=== PATIENT | female | born 1970 | race Caucasian/White ===

== ENCOUNTER → 2017-12-19 | Outpatient (CLI) | payer OTHER ==
[~2017-12-19] MED LIST: ALBUTEROL0.09 MG/A2 INH; CEFDINIR300 MG PO; HUMALOG100 U/ML SC; LANTUS100 U/ML SC; LEVAQUIN750 MG PO; LEVOFLOXACIN500 MG PO; LORAZEPAM0.5 MG PO; PHENERGAN25 M1 PO; PREDNICOT20 MG PO; PREDNISONE50 MG PO; PYRIDIUM200 MG PO; ZESTRIL,PRINIVI20 MG PO; ZITHROMAX Z PA250 MG PO
== END | disposition home or self-care (01) ==
LOC: CARD 10:00
DX: R00.2 Palpitations (principal)

== ENCOUNTER → 2017-12-25 | Outpatient (CLI) | payer OTHER | END | disposition home or self-care (01) | LOC: MAMMO 00:40 | DX: R92.8 Other abnormal and inconclusive findings on diagnostic imaging of breast (principal); N60.02 Solitary cyst of left breast; Z87.898 Personal history of other specified conditions ==

== ENCOUNTER → 2018-01-15 | Outpatient (CLI) | payer OTHER ==
--- NOTE | ~2018-01-15 | PF ---
[place], [place] PULMONARY FUNCTION TEST NAME: ALICE KEYES UNIT #: [id number] ROOM: DOCTOR: GABRIELA SWANN MD,OSIEL BIRTHDATE: [birth year] DOS: 01/15/2018 The testing was done on 01/15/2018 which was ordered by Ted John, nurse practitioner. HISTORY: The patient recorded a 47-year-old female, height of 65 inches, weight of 207 pounds, BMI of 34.5. Testing was done for assessment of bronchial asthma. Symptoms of shortness of breath with exertion, nonproductive cough and chronic wheezing reported. The patient was noted tobacco use as half a pack of cigarettes per day for the past 20 years. SPIROMETRY: The FVC was recorded 2.44 liters, 66% predicted value with 13% improvement postbronchodilator. The FEV1 recorded 1.87 liters as 63% predicted value with 16% improvement postbronchodilator was noted as well. The ratio of FEV1/FVC recorded as 77%. Flow volume loop was suggestive of reversible obstructive airway pattern. The lung volumes, thoracic gas volume recorded as 82%, residual volume 104%, total lung capacity 70% with 4%. Lung volume suggestive of mild restrictive airway pattern. Lung diffusion noted 40%, severely decreased without correction of carbon monoxide hemoglobin values. The patient's airway resistance and passive conductance were noted normal, partial improvement post-bronchodilator test. FINAL IMPRESSION: The test was current noted suggestive of evidence of moderate restrictive lung disease, etiology unclear with evidence of bronchial asthma at least moderate severity. OSIEL OCHOA MD CM:PFREPORT:PULMONARY FUNCTION TEST [id number] OSIEL SWANN MD
== END | disposition home or self-care (01) ==
LOC: CP 10:15
DX: J45.909 Unspecified asthma, uncomplicated (principal)

== ENCOUNTER 2019-11-18 09:10 | Emergency (ER) | payer OTHER ==
[~2019-11-18] VITALS: Ht 165.1 cm; Wt 92.1 kg
[~2019-11-18 09:10] MED LIST changes: +CYCLOBENZAPRINE5 M3 PO
[2019-11-18 10:01] LABS: BASO # 0.1 10*3/uL (0.0-0.1); BASO % 0.5 % (0.0-1.0); EOS # 0.1 10*3/uL (0.0-0.4); EOS % 1.5 % (1.0-4.0); HEMOGLOBIN 15.2 g/dl (12.0-16.0); LYMPH # 2.3 10*3/uL (1.3-4.4); LYMPH % 25.6 % (27.0-41.0); MEAN CELL VOLUME 89.8 fl (81.0-99.0); MEAN CORPUSCULAR HGB 30.3 pg (27.0-31.0); MEAN CORPUSCULAR HGB CONC 33.8 g/dl (33.0-37.0); MEAN PLATELET VOLUME 9.3 fl (9.6-12.3); MONO # 0.7 10*3/uL (0.1-1.0); MONO % 7.7 % (3.0-9.0); NEUT # 5.9 10*3/uL (2.3-7.9); NEUT % 64.4 % (47.0-73.0); PLATELET COUNT AUTOMATED 306 10*3/uL (130-400); RED BLOOD COUNT 5.01 10*6/uL (4.10-5.10); RED CELL DISTRI WIDTH 12.9 % (0-14.5); WHITE BLOOD COUNT 9.1 10*3/uL (4.8-10.8)
[2019-11-18 10:10] LABS: ACT PARTIAL THROMBO TIME 27.8 SECONDS (20.0-32.1); INTERNATIONAL NORM RATIO 0.9 (2.0-3.5)
[2019-11-18 10:18] LABS: ALBUMIN 3.6 gm/dl (3.1-4.5); ALKALINE PHOSPHATASE 158 U/L (45-117); BUN 10 mg/dl (7-24); CHLORIDE 102 mmol/L (98-107); CREATININE 0.77 mg/dL (0.55-1.02); LIPASE 281 U/L (73-393); POTASSIUM 3.8 mmol/L (3.5-5.1); SGOT/AST 13 IU/L (3-35); SGPT/ALT 23 U/L (12-78); SODIUM 131 mmol/L (136-145); TOTAL PROTEIN 7.2 gm/dL (6.4-8.2)
[2019-11-18 10:23] LABS: TROPONIN I < 0.015 ng/ml (<0.045)
[2019-11-18] MEDS ORDERED: PREDNISONE20 M1 PO (11:52)
== END 2019-11-18 11:55 | disposition home or self-care (01) ==
LOC: ED 09:10
PROVIDERS: Emergency Medicine
DX: G51.0 Bell's palsy (principal); F17.200 Nicotine dependence, unspecified, uncomplicated; Z79.899 Other long term (current) drug therapy; Z79.4 Long term (current) use of insulin

== ENCOUNTER → 2023-12-23 | Outpatient (CLI) | payer SELFPAY ==
[~2023-12-23] MED LIST changes: +PREDNISONE20 M1 PO
== END | disposition home or self-care (01) ==
LOC: RESCLI 02:28
PROVIDERS: ATTEND Internal Medicine
DX: E78.2 Mixed hyperlipidemia (principal); E11.65 Type 2 diabetes mellitus with hyperglycemia; J45.40 Moderate persistent asthma, uncomplicated; K21.9 Gastro-esophageal reflux disease without esophagitis; E55.9 Vitamin D deficiency, unspecified; J30.2 Other seasonal allergic rhinitis; F17.210 Nicotine dependence, cigarettes, uncomplicated; E53.8 Deficiency of other specified B group vitamins; J44.9 Chronic obstructive pulmonary disease, unspecified; Z79.4 Long term (current) use of insulin; Z79.899 Other long term (current) drug therapy; Z79.82 Long term (current) use of aspirin; Z86.16 Personal history of COVID-19; Z88.8 Allergy status to other drugs, medicaments and biological substances